=== PATIENT | male | born 1940 | race Asian ===

== ENCOUNTER 2018-08-30 16:11 | Inpatient (IN) | payer MEDICARE, BC ==
[~2018-08-30] VITALS: Ht 162.6 cm; Wt 56.7 kg
--- NOTE | 2018-08-30 07:00 | NUR ---
REPORT GIVEN TO ONCOMING NURSE, WALKING ROUNDS DONE, PATIENT IS RESTING IN BED. NO ACUTE DISTRESS NOTED. FAMILY AT BEDSIDE. CALL LIGHT WITHIN REACH. BED IN THE LOWEST POSITION.
[~2018-08-30 16:11] MED LIST: CRESTOR10 MG PO; METFORMIN HCL500 MG PO
[2018-08-30 17:07] LABS: BILIRUBIN,URINE NEGATIVE (NEGATIVE); CLARITY,URINE CLEAR (CLEAR); COLOR,URINE YELLOW (YELLOW); KETONES,URINE TRACE (NEGATIVE); LEUKOCYTE ESTERASE ,URINE NEGATIVE (NEGATIVE); NITRITE,URINE NEGATIVE (NEGATIVE); PROTEIN,URINE DIPSTICK NEGATIVE (NEGATIVE); URINE UROBILINOGEN 0.2 mg/dL (0.2 - 1)
[2018-08-30 17:11] LABS: BASOPHILS % 0.2 % (0.0-1.0); LYMPHOCYTES # (AUTO) 1.9 (1.0-3.2); LYMPHOCYTES % 17.7 % (18.0-39.1); MEAN CORPUSCULAR HGB CONC 32.3 g/dL (31-35); MEAN CORPUSCULAR VOLUME 83.5 fL (81-99); MONOCYTES # (AUTO) 1.2 (0.2-0.8); MONOCYTES % 10.6 % (4.4-11.3); NEUTROPHILS # (AUTO) 7.7 (2.1-6.9); NEUTROPHILS % 70.9 % (38.7-80.0); PLATELET COUNT 234 x10e3/uL (140-360); RED CELL DISTRIBUTION WIDTH 14.7 % (11.7-14.4)
[2018-08-30 17:12] LABS: HEMATOCRIT 16.7 % (38.2-49.6); HEMOGLOBIN 5.4 g/dL (14.0-18.0)
[2018-08-30 17:22] LABS: ALANINE AMINOTRANSFERASE 9 IU/L (0-55); ALBUMIN 3.2 g/dL (3.5-5.0); ALBUMIN/GLOBULIN RATIO 1.2 (0.8-2.0); ALKALINE PHOSPHATASE 45 IU/L (40-150); ANION GAP 16.6 mmol/L (8-16); BLOOD UREA NITROGEN 32 mg/dL (7-26); BUN/CREATININE RATIO 33 (6-25); CALCIUM 8.4 mg/dL (8.4-10.2); CARBON DIOXIDE 14 mmol/L (22-29); CHLORIDE 108 mmol/L (98-107); CREATINE KINASE 115 IU/L (30-200); CREATININE, SERUM 0.96 mg/dL (0.72-1.25); EST GLOMERULAR FILTRATION RATE > 60 ML/MIN (60-); GLUCOSE 242 mg/dL (74-118); POTASSIUM 3.6 mmol/L (3.5-5.1); SODIUM 135 mmol/L (136-145)
[2018-08-30 17:24] LABS: EPITHELIAL CELLS,URINE RARE /LPF
--- NOTE | 2018-08-30 17:48 | Diagnostic Imaging Report ---
EXAMINATION: CHEST SINGLE (PORTABLE) INDICATION: Chest pain, shortness of breath COMPARISON: None FINDINGS: TUBES and LINES: EKG leads overlie the thorax. LUNGS: The lung volumes are normal. No focal consolidation or pulmonary edema. PLEURA: No pleural effusion or pneumothorax. HEART AND MEDIASTINUM: The cardiomediastinal silhouette is normal in size and contour. BONES AND SOFT TISSUES: No acute fracture or dislocation. UPPER ABDOMEN: No free air under the diaphragm. IMPRESSION: No focal pneumonia or pulmonary edema. Signed by: Jerry Hernandez MD on 08/30/2018 5:44 PM
[2018-08-30] MEDS ORDERED: SODIUM CHLORIDE 0.9% 250ML 250 ML IV ONE (18:00)
--- OUTSIDE RECORDS SUMMARY | 2018-08-30 18:07 | XMS REPORT ---
Author Author [facility] Address Unknown Phone Unavailable Care Team Providers Care Scaler Name Role Phone Flora GOVEA Unavailable Unavailable Problems This patient has no known problems. Allergies, Adverse Reactions, Alerts This patient has no known allergies or adverse reactions. Medications This patient has no known medications. Results Test Description Test Time Test Comments Text Results Atomic Results Result Comments CHEST SINGLE (PORTABLE) 2018-08-30 17:42:00 [place] [address] Patient Name: PALMIRA ANGUIANO MR #: [id number] : 1940 Age/Sex: 78/M Req #: [id number] Adm Physician: Ordered by: ARELI GOVEA MD Report #: [id number] Location: ER Room/Bed: Procedure: [id number] DX/CHEST SINGLE (PORTABLE) Exam Date: 08/30/18 Exam Time: 1655 REPORT STATUS: Signed EXAMINATION: CHEST SINGLE (PORTABLE) I NDICATION: Chest pain, shortness of breath COMPARISON: None FINDINGS: TUBES and LINES: EKG leads overlie the thorax. LUNGS: The lung volumes are normal. No focal consolidation or pulmonary edema. PLEURA: No pleural effusion or pneumothorax. HEART AND MEDIASTINUM: The cardiomediastinal silhouette is normal in size and contour. BONES AND SOFT TISSUES: No acute fracture or dislocation. UPPER ABDOMEN: No free air under the diaphragm. IMPRESSION: No focal pneumonia or pulmonary edema. Signed by: Nakul Hernandez MD on 08/30/2018 5:44 PM Dictated By: NAKUL HERNANDEZ MD 43 Transcribed By: DEONDRE on 08/30/181743 COPY TO: ARELI GOVEA MD
[2018-08-30] MEDS ORDERED: DEXTROSE 50% SYRINGE 50 ML IV PRN (18:15)
--- NOTE | 2018-08-30 18:35 | NUR ---
RECEIVED PATIENT FROM ER TO ROOM 288, PATIENT IS IN STABLE CONDITION, NO ACUTE DISTRESS NOTED. FAMILY AT BEDSIDE. IV LINE TO LEFT FOREARM IS PATENT, FLUSHED WITH NS. PATIENT DENIES PAIN OR DISCOMFORT. PATIENT AND FAMILY ORIENTED TO ROOM AND POLICIES. CALL LIGHT WITHIN REACH. BED IN THE LOWEST POSITION.
[2018-08-30] MEDS ORDERED: PANTOPRAZOLE 40 MG 10ML VIAL IV SCH (18:45)
[2018-08-30 20:00] VITALS: BP 137/63
[2018-08-30] MEDS ORDERED: SODIUM CHLORIDE 0.9% 250ML 250 ML ONE (21:10)
[2018-08-30 22:01] VITALS: BP 137/63
[2018-08-30 22:07] VITALS: BP 137/63
[2018-08-31] VITALS (8 sets, daily range): BP systolic 110–141; BP diastolic 54–69
[2018-08-31] MEDS ORDERED: ONDANSETRON HCL INJ 2MG/ML 2ML 2 MG/ML VIAL IV PRN (06:00)
[2018-08-31] MEDS ORDERED: HYDRALAZINE HCL 20 MG/ML VIAL IV PRN (06:00)
[2018-08-31] MEDS ORDERED: ACETAMINOPHEN 325 MG TAB PO PRN (06:00)
[2018-08-31] MEDS ORDERED: PANTOPRAZOLE SOD 40 MG TABEC PO SCH (06:15)
--- NOTE | 2018-08-31 06:58 | NUR ---
RECEIVED PATIENT RESTING IN BED. RESPIRATIONS EVEN AND UNLABORED. NO ACUTE DISTRESS NOTED. CALL LIGHT WITHIN REACH. BED IN THE LOWEST POSITION.
[2018-08-31 07:51] LABS: HEMATOCRIT 21.3 % (38.2-49.6)
[2018-08-31 07:56] LABS: HEMOGLOBIN 6.8 g/dL (14.0-18.0)
--- NOTE | 2018-08-31 07:59 | NUR ---
LAB CALLED TO NOTIFY NURSE OF HGB OF 6.8. NOTIFIED MATTHEW, URINALYSIS TECHNICIAN AWAITING ON ORDERS.
[2018-08-31] MEDS: PANTOPRAZOLE SOD 40 MG TABEC PO SCH (08:15)
[2018-08-31] MEDS ORDERED: SODIUM CHLORIDE 0.9% 250ML 250 ML IV ONE (10:00)
--- NOTE | 2018-08-31 10:48 | NUR ---
STARTED 1 UNIT OF PRBC ORDERED AT THIS TIME. PATIENT IS IN STABLE CONDITION. VS WNL, WILL CONTINUE TO MONITOR.
--- NOTE | 2018-08-31 15:50 | NUR ---
Visit made by the Spiritual Care Department Pastoral Visitor, Doris Michelle. PV provided pastoral presence, prayer, hospitality, and supportive listening. Pastoral Visitor informed pt/family of the scope of [employer] and availability. CINTIA HILL [employer] Spiritual Care Department O: [phone] Pager: [phone] ([phone] number calling from)
[2018-08-31 16:57] LABS: HEMATOCRIT 28.6 % (38.2-49.6); HEMOGLOBIN 9.4 g/dL (14.0-18.0)
--- NOTE | 2018-08-31 18:57 | NUR ---
REPORT GIVEN TO ONCOMING NURSE, PATIENT IS WALKING IN ROOM. PATIENT DENIES WEAKNESS OF DIZZINESS. DENIES PAIN OR DISCOMFORT. NO ACUTE DISTRESS NOTED.
[2018-09-01] VITALS: BP 120/59
--- NOTE | 2018-09-01 02:35 | Consultation ---
DATE OF CONSULTATION: 08/31/2018 HISTORY OF PRESENT ILLNESS: This is a 78-year-old, who apparently had colonoscopy with polypectomy on August 24, apparently has some postpolypectomy bleeding for several days. He comes into the hospital and found that his hemoglobin was 5.4. He did receive blood transfusions and hemoglobin went up to 9.4. The bleeding appears to be better at this point. PAST MEDICAL PROBLEM: Significant for history of diabetes, status post colonoscopy with polypectomy. ALLERGIES: NONE. SOCIAL HISTORY: No alcohol use. FAMILY HISTORY: Noncontributory. REVIEW OF SYSTEMS: Denies any chest pain. At this point, he denies any shortness of breath. Denies any dysphagia or odynophagia. Denies any dysuria, hematuria, or any kind of syncopal episode. PHYSICAL EXAMINATION: GENERAL: The patient is awake, alert, appears to be stable, not in acute distress at this point. VITAL SIGNS: Afebrile currently with stable vital signs. HEAD, EYES, EARS, NOSE, AND THROAT: Normocephalic, atraumatic. Sclerae are anicteric. NECK: Supple. HEART: Regular. ABDOMEN: Soft. There is no distention at this point, it is nontender. EXTREMITIES: No cyanosis. No clubbing. LAB VALUES: His hemoglobin today is 9.4. BMP is okay. IMPRESSION: 1. Post polypectomy bleeding. At this point, the bleeding appeared to be stopped. The patient is currently asymptomatic. 2. History of diabetes. RECOMMENDATION: Continue current care at this point and check lab tomorrow. If hemoglobin is stable and the patient is not bleeding any more, he can call and follow up in the office. MD TA Harrell/MODL /[id number] cc: MD Dr. Gal Kent
[2018-09-01 04:00] VITALS: BP 132/70
[2018-09-01 04:09] LABS: BASOPHILS % 0.3 % (0.0-1.0); EOSINOPHILS # (AUTO) 0.1 (0.0-0.4); EOSINOPHILS % 1.4 % (0.0-6.0); HEMATOCRIT 24.7 % (38.2-49.6); HEMOGLOBIN 8.2 g/dL (14.0-18.0); LYMPHOCYTES % 24.8 % (18.0-39.1); MEAN CORPUSCULAR HGB CONC 33.2 g/dL (31-35); MEAN CORPUSCULAR VOLUME 84.3 fL (81-99); MONOCYTES # (AUTO) 0.8 (0.2-0.8); MONOCYTES % 9.7 % (4.4-11.3); NEUTROPHILS % 63.5 % (38.7-80.0); PLATELET COUNT 152 x10e3/uL (140-360); RED BLOOD COUNT 2.93 x10e6/uL (4.3-5.7); RED CELL DISTRIBUTION WIDTH 14.8 % (11.7-14.4)
[2018-09-01 04:26] LABS: ANION GAP 9.3 mmol/L (8-16); BLOOD UREA NITROGEN 22 mg/dL (7-26); BUN/CREATININE RATIO 29 (6-25); CALCIUM 7.9 mg/dL (8.4-10.2); CARBON DIOXIDE 21 mmol/L (22-29); CHLORIDE 112 mmol/L (98-107); CREATININE, SERUM 0.76 mg/dL (0.72-1.25); EST GLOMERULAR FILTRATION RATE > 60 ML/MIN (60-); GLUCOSE 140 mg/dL (74-118); MAGNESIUM 2.2 MG/DL (1.3-2.1); POTASSIUM 3.3 mmol/L (3.5-5.1); SODIUM 139 mmol/L (136-145)
[2018-09-01 04:37] LABS: B-TYPE NATRIURETIC PEPTIDE2 524.6 pg/mL (0-100)
[2018-09-01 04:48] LABS: FREE T4 (FREE THYROXINE) 1.01 ng/dL (0.8-1.8); THYROID STIMULATING HORMONE 0.003 uIU/mL (0.350-4.940)
[2018-09-01] MEDS ORDERED: POTASSIUM CHLORIDE 20 MEQ TAB CR PO STA (06:46)
[2018-09-01] MEDS ORDERED: PROTONIX40 MG/ML PO (06:54)
[2018-09-01] MEDS ORDERED: FERROUS SULFAT325 MG PO (06:54)
[2018-09-01] MEDS ORDERED: ASCORBIC ACID500 MG PO (06:54)
--- NOTE | 2018-09-01 07:30 | NUR ---
PT UP AMBULATING IN [place] ,DENIES PAIN,
[2018-09-01 07:45] VITALS: BP 127/76
[2018-09-01 07:53] VITALS: BP 127/76
[2018-09-01] MEDS: PANTOPRAZOLE SOD 40 MG TABEC PO SCH (08:45)
[2018-09-01] MEDS ORDERED: OYST-CAL-D 500MG TABLET PO SCH (09:00)
--- NOTE | 2018-09-01 11:29 | NUR ---
PT DISCHARGED HOME ,PRESCRIPTIONS AND INSTRUCTIONS GIVEN COPY ON CHAT,NO IV NOTED.
--- NOTE | 2018-09-02 03:18 | Discharge Summary ---
ADMISSION DIAGNOSES: Gastrointestinal bleed, type 2 diabetes, dehydration. DISCHARGE DIAGNOSES: Gastrointestinal bleed, type 2 diabetes, dehydration, acute blood loss anemia secondary to gastrointestinal bleed. MEDICAL HISTORY: Type 2 diabetes. SURGICAL HISTORY: None. FAMILY HISTORY: None. SOCIAL HISTORY: Occasional alcohol use. HOSPITAL COURSE: A 78-year-old male with history of colonoscopy on August 24, complains of black and bloody stools since the colonoscopy. He denies nausea, vomiting, diarrhea, and fever. He has had no change in appetite or abdominal pain. Since admission to the ER, he has not noticed any bleeding. He donates blood on a regular occasion and last donated blood about 3 weeks ago. On admission, the patient's hemoglobin was 5.4. Two PRBCs were ordered. Chest x-ray showed no pneumonia or edema. After 2 units of PRBCs, the hemoglobin went up to 6.8, and an additional unit was ordered and hemoglobin went up to 9.4, which has fallen to 8.2 by the next day. GI was consulted. They said since the hemoglobin is stable the patient can discharge and follow up for any additional studies outpatient. The patient did not have a bowel movement during hospitalization, but is ready to discharge home and will follow up outpatient with GI. The patient and understand discharge instructions and agrees to plan. Vital signs stable. The patient afebrile. Dictated by Rosalva Rosales NP MD MARAH Kent/ERIC /[id number]
== END 2018-09-01 11:19 | disposition home or self-care (01) | DRG 920 ==
LOC: ER 16:11 → ERHOLD 17:52 → MED/SURG3 18:30
PROVIDERS: ADMIT Internal Medicine; ATTEND Internal Medicine
PROC: 30233N1 Transfusion of Nonautologous Red Blood Cells into Peripheral Vein, Percutaneous Approach (ICD-10-PCS; principal; 2018-08-31)
DX: K91.840 Postprocedural hemorrhage of a digestive system organ or structure following a digestive system procedure (principal); K92.2 Gastrointestinal hemorrhage, unspecified; D62 Acute posthemorrhagic anemia; E86.0 Dehydration; E11.9 Type 2 diabetes mellitus without complications
CPT/HCPCS: 36415; 71045; 80048; 80053; 81001; 82550; 82553; 82948; 83036; 83735; 83880; 84439; 84443; 84484; 85014; 85018; 85025; 86850; 86900; 86920; 93005; 99284; J7050; P9016

== ENCOUNTER 2019-08-05 02:18 | Emergency (ER) | payer OTHER, BC ==
[~2019-08-05] VITALS: Ht 162.6 cm; Wt 56.7 kg
[~2019-08-05 02:18] MED LIST changes: +ASCORBIC ACID500 MG PO; +FERROUS SULFAT325 MG PO; +PROTONIX40 MG/ML PO
--- OUTSIDE RECORDS SUMMARY | 2019-08-05 02:21 | XMS REPORT | Continuity of Care Document ---
Author Author [facility] t Organization [facility] Address [address] [place] [address] Phone Unavailable Care Team Providers Care Construction Scheduler Name Role Phone ESCOBAR YOUSSEF MD PCP Gloria GOVEA Attphygloria Unavailable Payers Payer Name Policy Type Policy Number Effective Date Expiration Date Gloria Barahona Plus [facility] [id number] 2018 00:00:00 [facility] [employer] [id number] 2015 00:00:[address] [facility] Problems Condition Name Condition Details Condition Category Status Onset Date Resolution Date Last Treatment Date Treating Clinician Comments Source Lower gastrointestinal hemorrhage LGI bleed Problem Active [facility] Allergies, Adverse Reactions, Alerts This patient has no known allergies or adverse reactions. Medications Ordered Medication Name Filled Medication Name Start Date Stop Da te Current Medication? Ordering Clinician Indication Dosage Frequency Signature (SIG) Comments Components Source Ascorbic Acid 500 Mg Tablet Ascorbic Acid 500 Mg Tablet 2018-09-01 00:00:00 Yes Rosalva M Dexter Unix Engineer 500 Daily [facility] Ferrous Sulfate 325 Mg Tablet Ferrous Sulfate 325 Mg Tablet 2018 00:00:00 Yes Rosalva M Bobby [employer] [address] [facility] Pantoprazole Sod (Protonix) 40 Mg/Ml Susp Pantoprazole Sod (Protonix) 40 Mg/Ml Susp 2018-09-01 00:00:00 Yes Rosalva Keyona OwusuBobby [employer] Engineer [address] [facility] Metformin Hcl 500 Mg Tablet, 500 Mg Oral Metformin Hcl 500 Mg Tablet, 500 Mg Oral 2018-08-30 00:00:[address] [facility] Rosuvastatin Calcium (Crestor) 10 Mg Tab, 10 Mg Oral R osuvastatin Calcium (Crestor) 10 Mg Tab, 10 Mg Oral 2018-08-30 00:00:[address] [facility] Procedures This patient has no known procedures. Encounters Start Date/Time End Date/Time Encounter Type Admission Type Attendi [facility] Care Department Encounter ID Source 2018-08-30 17:52:00 2018-09-01 11:19:00 Discharged Inpatient 1 ARELI GOVEA [facility] [id number] [facility] Results Test Description Test Time Test Comments Results Result Comments Source Bedside Glucose 2018-09-01 07:55:00 Test Item Bedside Glucose (test code = 45406-0) 153 70-120 H Meter ID: [id number]. [facility]'s [facility] HospitalB-Type Natriuretic Vzicrhd9119-73-29 05:21:00* Test Item Value Reference Range Interpretation Comments B-Type Natriuretic Peptide (test code = 23130-0) 524.6 0-[address] [facility] HospitalFree Kubmrhzvb7820-18-19 05:20:00* Test Item Value Reference Range Interpretation Comments Free Thyroxine (test code = 3024-7) 1.01 0.8-1.8 [facility] HospitalThyroid Stimulating Hormone (TSH) 2018-09-01 05:20:00* Test Item Value Reference Range Interpretation Comments Thyroid Stimulating Hormone (TSH) (test code = 87467-6) 0.003 0.350-4.[address] [facility] Xnqza9879-83-89 04:31:00* Test Item Value Reference Range Interpretation Comments Sodium Level (test code = 2951-2) 139 136-145 [facility] HospitalPotassium Mbiyi8889-63-38 04:31:00* Test Item Value Reference Range Interpretation Comments Potassium Level (test code = 2823-3) 3.3 3.5-5.[address] [facility] HospitalChloride Lzpcu1393-77-52 04:31:00* Test Item Value Reference Range Interpretation Comments Chloride Level (test code = 2075-0) 112 98-[address] [facility] HospitalCarbon Dioxide Biydd7101-25-76 04:31:00* Test Item Value Reference Range Interpretation Comments Carbon Dioxide Level (test code = 2028-9) 21 22-[address] [facility] HospitalAnion Aqm5891-97-75 04:31:00* Test Item Value Reference Range Interpretation Comments Anion Gap (test code = 32662-1) 9.3 8-16 [facility] HospitalBlood Urea Fwfdcjdf5310-91-07 04:31:00* Test Item Value Reference Range Interpretation Comments Blood Urea Nitrogen (test code = 3094-0) 22 7-26 [facility] HospitalCreatinine2019-07-10 04:31:00* Test Item Value Reference Range Interpretation Comments Creatinine (test code = 2160-0) 0.76 0.72-1.25 [facility] HospitalBUN/Creatinine Sxtms4503-49-06 04:31:00* Test Item Value Reference Range Interpretation Comments BUN/Creatinine Ratio (test code = 3097-3) 29 6-[address] [facility] HospitalEstimat Glomerular Filtration Rate 2018-09-01 04:31:00* Test Item Value Reference Range Interpretation Comments Estimat Glomerular Filtration Rate (test code = 192755727) > 60 >60 Ranges were taken from the National Kidney Disease Education Program and the [facility] literature.Reference ranges:60 or greater: Yizoeq00-72 ( for 3 consecutive months): Chronic kidney disease 15 or less: Kidney failureSt. David's Georgetown HospitalGlucose Hsesa6335-19-73 04:31:00* Test Item Value Reference Range Interpretation Comments Glucose Level (test code = CCE8784) 140 74-[address] [facility] HospitalCalcium Rlzob7212-88-51 04:31:00* Test Item Value Reference Range Interpretation Comments Calcium Level (test code = 10680-0) 7.9 8.4-10.[address] [facility] HospitalHemoglobin A1c Exlwpmz9206-38-61 04:31:00 * Test Item Value Reference Range Interpretation Comments Hemoglobin A1c Percent (test code = Hemoglobin A1c Percent) 6.5 4.0-7.0 [facility] HospitalMagnesium Lkriz9346-64-15 04:31:00* Test Item Value Reference Range Interpretation Comments Magnesium Level (test code = 31894-9) 2.2 1.3-2.[address] [facility] HospitalWhite Blood Hvxiq3111-61-23 04:19:00* Test Item Value Reference Range Interpretation Comments White Blood Count (test code = 6690-2) 7.86 4.8-10.8 [facility] HospitalRed Blood Xdcbn6830-64-00 04:19:00* Test Item Value Reference Range Interpretation Comments Red Blood Count (test code = 789-8) 2.93 4.3-5.[address] [facility] HospitalHemoglobin2019-07-10 04:19:00* Test Item Value Reference Range Interpretation Comments Hemoglobin (test code = 17107-1) 8.2 14.0-18.[address] [facility] HospitalHematocrit2019-07-10 04:19:00* Test Item Value Reference Range Interpretation Comments Hematocrit (test code = 4544-3) 24.7 38.2-49.[address] [facility] HospitalMean Corpuscular Dddusy6487-55-25 04:19:00* Test Item Value Reference Range Interpretation Comments Mean Corpuscular Volume (test code = 787-2) 84.3 81-99 [facility] HospitalMean Corpuscular Yxzvesavzv9797-12-95 04:19:00* Test Item Value Reference Range Interpretation Comments Mean Corpuscular Hemoglobin (test code = 785-6) 28.0 28-32 [facility] HospitalMean Corpuscular Hemoglobin Concent 2018-09-01 04:19:00* Test Item Value Reference Range Interpretation Comments Mean Corpuscular Hemoglobin Concent (test code = 786-4) 33.2 31-35 [facility] HospitalRed Cell Distribution Pyscd4188-92-02 04:19:00* Test Item Value Reference Range Interpretation Comments Red Cell Distribution Width (test code = 57499-9) 14.8 11.7 -14.[address] [facility] HospitalPlatelet Uopqx1205-52-23 04:19:00* Test Item Value Reference Range Interpretation Comments Platelet Count (test code = 777-3) 152 140-360 [facility] HospitalNeutrophils (%) (Auto)2018-09-01 04:19:00 * Test Item Value Reference Range Interpretation Comments Neutrophils (%) (Auto) (test code = 81468-9) 63.5 38.7-80.0 [facility] HospitalLymphocytes (%) (Auto)2018-09-01 04:19:00 * Test Item Value Reference Range Interpretation Comments Lymphocytes (%) (Auto) (test code = 736-9) 24.8 18.0-39.1 [facility] HospitalMonocytes (%) (Auto)2018-09-01 04:19:00* Test Item Value Reference Range Interpretation Comments Monocytes (%) (Auto) (test code = 5905-5) 9.7 4.4-11.3 [facility] HospitalEosinophils (%) (Auto)2018-09-01 04:19:00 * Test Item Value Reference Range Interpretation Comments Eosinophils (%) (Auto) (test code = 713-8) 1.4 0.0-6.0 [facility] HospitalBasophils (%) (Auto)2018-09-01 04:19:00* Test Item Value Reference Range Interpretation Comments Basophils (%) (Auto) (test code = 706-2) 0.3 0.0-1.0 [facility] HospitalIM GRANULOCYTES %2018-09-01 04:19:00* Test Item Value Reference Range Interpretation Comments IM GRANULOCYTES % (test code = IM GRANULOCYTES %) 0.3 0.0- 1.0 [facility] HospitalNeutrophils # (Auto)2018-09-01 04:19:00* Test Item Value Reference Range Interpretation Comments Neutrophils # (Auto) (test code = 751-8) 5.0 2.1-6.9 [facility] HospitalLymphocytes # (Auto)2018-09-01 04:19:00* Test Item Value Reference Range Interpretation Comments Lymphocytes # (Auto) (test code = 37955-9) 2.0 1.0-3.2 [facility] HospitalMonocytes # (Auto)2018-09-01 04:19:00* Test Item Value Reference Range Interpretation Comments Monocytes # (Auto) (test code = 742-7) 0.8 0.2-0.8 [facility] HospitalEosinophils # (Auto)2018-09-01 04:19:00* Test Item Value Reference Range Interpretation Comments Eosinophils # (Auto) (test code = 711-2) 0.1 0.0-0.4 [facility] HospitalBasophils # (Auto)2018-09-01 04:19:00* Test Item Value Reference Range Interpretation Comments Basophils # (Auto) (test code = 704-7) 0.0 0.0-0.1 [facility] HospitalAbsolute Immature Granulocyte (auto 2018-09-01 04:19:00* Test Item Value Reference Range Interpretation Comments Absolute Immature Granulocyte (auto (roxanna t code = Absolute Immature Granulocyte (auto) 0.02 0-0.1 [facility] HospitalCHEST SINGLE (PORTABLE)2018-08-30 17:42:00 [place] [address] Patient Name: PALMIRA ANGUIANO MR #: [id number] : 1940 Age/Sex: 78/M Req #: [id number] Adm Physician: Ordered by: ARELI GOVEA MD Report #: [id number] Location: ER Room/Bed: Procedure: [id number] DX/CHEST SINGLE (PORTABLE) Exam Date: 08/30/18 Exam Time: 6005 REPORT STATUS: Signed EXAMINATION: CHEST SINGLE (PORTABLE) INDICATION: Chest pain, shortness of breath COMPARISON: None FINDINGS: TUBES and LINES: EKG leads overlie the thorax. LUNGS: The lung volumes are normal. No focal conso lidation or pulmonary edema. PLEURA: No pleural effusion or pneumothorax. HEART AND MEDIASTINUM: The cardiomediastinal silhouette is normal in size and contour. BONES AND SOFT TISSUES: No acute fracture or dislocation. UPPER ABDOMEN: No free air under the diaphragm. IMPRESSION: No focal pneumonia or pulmonary edema. Signed by: Nakul Barreto MD on 08/30/2018 5:44 PM Dictated By: NAKUL BARRETO MD 43 COPY TO: Trini GOVEA MD Creatine Kinase RC3714-19-29 17:31:00* Test Item Value Reference Range Interpretation Comments Creatine Kinase MB (test code = 69404-4) 0.80 0-5.0 [facility] HospitalTroponin [id number] 17:31:00* Test Item Value Reference Range Interpretation Comments Troponin I (test code = SDO7128) < 0.001 0-0.300 [facility] HospitalUrine MIJ4007-15-24 17:24:00* Test Item Value Reference Range Interpretation Comments Urine WBC (test code = 5821-4) NONE 0-5 [facility] HospitalUrine YBQ7097-12-48 17:24:00* Test Item Value Reference Range Interpretation Comments Urine RBC (test code = 26597-5) NONE 0-5 [facility] HospitalUrine Smnbkmzn6789-53-84 17:24:00* Test Item Value Reference Range Interpretation Comments Urine Bacteria (test code = 72329-7) NONE NONE [facility] HospitalUrine Epithelial Hdgcd6025-10-00 17:24:00 * Test Item Value Reference Range Interpretation Comments Urine Epithelial Cells (test code = 30952-0) RARE NONE [facility] HospitalTotal Xsckwlmas2234-66-14 17:23:00* Test Item Value Reference Range Interpretation Comments Total Bilirubin (test code = 1975-2) 0.5 0.2-1.2 [facility] HospitalAspartate Amino Transf (AST/SGOT) 2018-08-30 17:23:00* Test Item Value Reference Range Interpretation Comments Aspartate Amino Transf (AST/SGOT) (test code = Aspartate Amino Transf (AST/SGOT)) 13 5-34 [facility] HospitalAlanine Aminotransferase (ALT/SGPT) 2018-08-30 17:23:00* Test Item Value Reference Range Interpretation Comments Alanine Aminotransferase (ALT/SGPT) (test code = 1742-6) 9 0-55 [facility] HospitalTotal Libdmim2932-83-08 17:23:00* Test Item Value Reference Range Interpretation Comments Total Protein (test code = 2885-2) 5.9 6.5-8.[address] [facility] HospitalAlbumin2019 17:23:00* Test Item Value Reference Range Interpretation Comments Albumin (test code = 1751-7) 3.2 3.5-5.[address] [facility] HospitalGlobulin2019 17:23:00* Test Item Value Reference Range Interpretation Comments Globulin (test code = 68107-7) 2.7 2.3-3.5 [facility] HospitalAlbumin/Globulin Gkwbc1854-47-04 17:23:00 * Test Item Value Reference Range Interpretation Comments Albumin/Globulin Ratio (test code = 1759-0) 1.2 0.8-2.0 [facility] HospitalAlkaline Hzruptvnuqd5945-32-91 17:23:00* Test Item Value Reference Range Interpretation Comments Alkaline Phosphatase (test code = 6768-6) 45 40-150 [facility] HospitalCreatine Zxbuwy2740-66-57 17:23:00* Test Item Value Reference Range Interpretation Comments Creatine Kinase (test code = 2157-6) 115 30-200 [facility] HospitalUrine Vgxla3564-75-86 17:10:00* Test Item Value Reference Range Interpretation Comments Urine Color (test code = 5778-6) YELLOW YELLOW [facility] HospitalUrine Kvhdcgu1230-07-25 17:10:00* Test Item Value Reference Range Interpretation Comments Urine Clarity (test code = 19268-1) CLEAR CLEAR [facility] HospitalUrine Specific Cnjaynt6907-80-52 17:10:00 * Test Item Value Reference Range Interpretation Comments Urine Specific [place] (test code = 5811-5) 1.015 1.010-1.[address] [facility] HospitalUrine [id number] 17:10:00* Test Item Value Reference Range Interpretation Comments Urine pH (test code = 19290-4) 5.5 5-7 [facility] HospitalU[facility] Leukocyte Eeitazvm2486-10-84 17:10:00* Test Item Value Reference Range Interpretation Comments Urine Leukocyte Esterase (test code = 27627-2) NEGATIVE NEGATIV E [facility] Ngepnsn3192-24-57 17:10:00* Test Item Value Reference Range Interpretation Comments Urine Nitrite (test code = 60424-7) NEGATIVE NEGATIVE [facility] Joxgrfr1578-92-92 17:10:00* Test Item Value Reference Range Interpretation Comments Urine Protein (test code = 67316-2) NEGATIVE NEGATIVE [facility] Glucose (UA)2018-08-30 17:10:00* Test Item Value Reference Range Interpretation Comments Urine Glucose (UA) (test code = 22659-1) 3+ NEGATIVE [facility] HospitalUrine Orzhfbz0963-53-34 17:10:00* Test Item Value Reference Range Interpretation Comments Urine Ketones (test code = 75878-6) TRACE NEGATIVE H [facility] Qarzuzaxzaup6354-68-13 17:10:00* Test Item Value Reference Range Interpretation Comments Urine Urobilinogen (test code = 53759-0) 0.2 0.2-1 [facility] HospitalUrine Qaqikwmsg5134-10-06 17:10:00* Test Item Value Reference Range Interpretation Comments Urine Bilirubin (test code = 1977-8) NEGATIVE NEGATIVE [facility] Kdqpv1158-22-26 17:10:00* Test Item Value Reference Range Interpretation Comments Urine Blood (test code = 99898-6) NEGATIVE NEGATIVE [facility]
[2019-08-05] MEDS ORDERED: PANTOPRAZOLE 40 MG 10ML VIAL IV STA (02:32)
--- NOTE | 2019-08-05 02:44 | Emergency Department Note ---
History of Present Illnes History of Present Illness Chief Complaint: Abdominal Complaints History of Present Illness This is a 79 year old male presents with complaint of abdominal pain for over 12 hours. Was seen in an urgent care yesterday for same. Was prescribed Reglan. Patient denies nausea vomiting diarrhea. States the reason he came in is because he still has the pain. Describes the pain as his entire abdomen crampy like and constant. . Historian: Patient Arrival Mode: Car Onset (how long ago): hour(s) (12) Location: abdomen Quality: pain Radiation: Reports non-radiation Severity: moderate Onset quality: gradual Duration (how long): hour(s) (12) Progression: unchanged Chronicity: new Context: Denies recent illness, Denies recent surgery Relieving factors: none Exacerbating factors: none Associated symptoms: Reports denies other symptoms Treatments prior to arrival: other (reglan without relief) Past Medical/Family History Physician Review I have reviewed the patient's past medical and family history. Any updates have been documented here. Past Medical History Recent Fever: No Clinical Suspicion of Infectio: No New/Unexplained Change in Ment: No Past Medical History: Diabetes, Hyperlipedemia Other Medical History: colonoscopy Past Surgical History: None Family History Family history of heart diseas: No Other family history dm Other Last Tetanus: OOD Review of Systems Review of Systems Constitutional: Reports no symptoms EENTM: Reports no symptoms Cardiovascular: Reports no symptoms Respiratory: Reports no symptoms Gastrointestinal: Reports as per HPI Genitourinary: Reports no symptoms Musculoskeletal: Reports no symptoms Integumentary: Reports no symptoms Neurological: Reports no symptoms Psychological: Reports no symptoms Endocrine: Reports no symptoms Hematological/Lymphatic: Reports no symptoms Physical Exam Related Data Allergies: Coded Allergies: No Known Allergies (Unverified , 08/30/18) Triage Vital Signs Vital Signs Date Time Temp Pulse Resp B/P (MAP) Pulse Ox O2 Delivery O2 Flow Rate FiO2 08/05/19 02:26 97.9 87 18 171/80 96 Vital signs reviewed: Yes Physical Exam CONSTITUTIONAL Constitutional: Reports well-developed, Reports well-nourished, Reports other (no apparanet distress) HENT HENT: Reports normocephalic, Reports atraumatic, Reports oropharynx clear/moist, Reports nose normal HENT L/R: Reports left ext ear normal, Reports right ext ear normal EYES Eyes: Reports PERRL, Reports conjunctivae normal NECK Neck: Reports ROM normal PULMONARY Pulmonary: Reports effort normal, Reports breath sounds normal CARDIOVASCULAR Cardiovascular: Reports regular rhythm, Reports irregular rhythm (skipping occasional beats), Reports heart sounds normal, Reports capillary refill normal, Reports normal rate GASTROINTESTINAL Abdominal: Reports soft, Reports bowel sounds normal, Reports tender (mild generalized tenderness) GENITOURINARY Genitourinary: Reports exam deferred SKIN Skin: Reports warm, Reports dry MUSCULOSKELETAL Musculoskeletal: Reports ROM normal NEUROLOGICAL Neurological: Reports alert, Reports oriented x 3, Reports no gross motor or sensory deficits PSYCHOLOGICAL Psychological: Reports mood/affect normal, Reports judgement normal Results Laboratory Laboratory Laboratory Tests Test 08/05/19 03:14 08/05/19 02:40 Urine Color Yellow (YELLOW) Urine Clarity Clear (CLEAR) Urine pH 6 (5 - 7) Urine Specific [place] 1.025 (1.010-1.025) Urine Protein Negative (NEGATIVE) Urine Glucose (UA) 1+ (NEGATIVE) Urine Ketones 1+ (NEGATIVE) Urine Blood Small (NEGATIVE) Urine Nitrite Negative (NEGATIVE) Urine Bilirubin Negative (NEGATIVE) Urine Urobilinogen 0.2 mg/dL (0.2 - 1) Urine Leukocyte Esterase Negative (NEGATIVE) Urine RBC 6-10 /HPF (0-5) Urine WBC 6-10 /HPF (0-5) Urine Epithelial Cells Few /LPF (NONE) Urine Bacteria Rare /HPF (NONE) White Blood Count 7.97 x10e3/uL (4.8-10.8) Red Blood Count 5.55 x10e6/uL (4.3-5.7) Hemoglobin 15.4 g/dL (14.0-18.0) Hematocrit 45.1 % (38.2-49.6) Mean Corpuscular Volume 81.3 fL (81-99) Mean Corpuscular Hemoglobin 27.7 pg (28-32) Mean Corpuscular Hemoglobin Concent 34.1 g/dL (31-35) Red Cell Distribution Width 13.3 % (11.7-14.4) Platelet Count 234 x10e3/uL (140-360) Neutrophils (%) (Auto) 71.2 % (38.7-80.0) Lymphocytes (%) (Auto) 18.3 % (18.0-39.1) Monocytes (%) (Auto) 8.4 % (4.4-11.3) Eosinophils (%) (Auto) 1.4 % (0.0-6.0) Basophils (%) (Auto) 0.3 % (0.0-1.0) Neutrophils # (Auto) 5.7 (2.1-6.9) Lymphocytes # (Auto) 1.5 (1.0-3.2) Monocytes # (Auto) 0.7 (0.2-0.8) Eosinophils # (Auto) 0.1 (0.0-0.4) Basophils # (Auto) 0.0 (0.0-0.1) Absolute Immature Granulocyte (auto 0.03 x10e3/uL (0-0.1) Sodium Level 138 mmol/L (136-145) Potassium Level 3.3 mmol/L (3.5-5.1) Chloride Level 106 mmol/L (98-107) Carbon Dioxide Level 19 mmol/L (22-29) Anion Gap 16.3 mmol/L (8-16) Blood Urea Nitrogen 10 mg/dL (7-26) Creatinine 0.96 mg/dL (0.72-1.25) Estimat Glomerular Filtration Rate > 60 ML/MIN (60-) BUN/Creatinine Ratio 10 (6-25) Glucose Level 137 mg/dL (74-118) Calcium Level 8.8 mg/dL (8.4-10.2) Total Bilirubin 1.1 mg/dL (0.2-1.2) Aspartate Amino Transf (AST/SGOT) 20 IU/L (5-34) Alanine Aminotransferase (ALT/SGPT) 14 IU/L (0-55) Alkaline Phosphatase 91 IU/L (40-150) Creatine Kinase 91 IU/L (30-200) Creatine Kinase MB 2.00 ng/mL (0-5.0) Troponin I 0.014 ng/mL (0-0.300) Total Protein 7.5 g/dL (6.5-8.1) Albumin 4.0 g/dL (3.5-5.0) Globulin 3.5 g/dL (2.3-3.5) Albumin/Globulin Ratio 1.1 (0.8-2.0) Amylase Level 85 U/L (25-125) Lipase 17 U/L (8-78) Lab results reviewed: Yes Imaging Imaging results reviewed: Yes Impressions ct abd/pelvis IMPRESSION: 1. Significant dilatation of large bowel with air and stool with transition point at sigmoid colon, representing at least partial bowel obstruction versus colonic ileus. 2. Rectal wall thickening, could be due to infectious/inflammatory process such as proctitis. Underlying rectal lesion cannot be excluded and correlation with endoscopy is recommended.. 3. 20 cm right renal cysts. Procedures 12 Lead ECG Interpretation ECG Interpretation : ECG: ECG 1 Pump Station Operator: Interpreted by ED physician Date: Aug 05, 2019 Time: 02:32 Prior ECG tracings: reviewed (from 08/2018, pvc's present at that time) Rhythm: sinus rhythm Ectopy: frequent PVC's Rate: normal BPM: 85 QRS axis: normal ST segments normal: No (nonspecific changes) Other findings: no other findings Clinical Impression: abnormal ECG Assessment & Plan Medical Decision Making MDM Patient presents with generalized abdominal pain for over 12 hours. Went to an urgent care and was seen in [facility]. States pain has not gotten any better. Denies chest pain shortness of breath nausea vomiting and diarrhea. Patient with PVCs on EKG, reviewed old EKG which revealed PVCs as well back in August 2018. CBC, CMP, amylase, lipase, CT abdomen and pelvis, EKG, cardiac enzymes, UA ordered to eval for pancreatitis, myocardial infarction, elevated LFTs, gallstones, colitis, appendicitis, diverticulitis pt has findings of bowel obstruction on ct abd, this facility is at capacity and has no beds available for admission, thus will require transfer for further treatment. I SPOKE WITH DR MARTI SURGEON AT [facility], STATES PT NEEDS TO BE ACCEPTED BY HOSPITALIST WITH HER A ANESTHESIOLOGIST. I SPOKE WITH DR SCHWAB HOSPITALIST AT [facility] AND HE ACCEPTS. Assessment & Plan Final Impression: (1) Bowel obstruction Last Vital Signs Date Time Temp Pulse Resp B/P (MAP) Pulse Ox O2 Delivery O2 Flow Rate FiO2 08/05/19 02:26 97.9 87 18 171/80 96 Home Meds Active Scripts Ascorbic Acid (ASCORBIC ACID) 500 Mg Tablet, 500 MG PO DAILY, #30 TAB Prov:MATTHEW ZUNIGA METAL SHAPING MACHINE OPERATOR 09/01/18 Ferrous Sulfate (FERROUS SULFATE) 325 Mg Tablet, 325 MG PO DAILY, #30 Prov:MATTHEW ZUNIGA METAL SHAPING MACHINE OPERATOR 09/01/18 Pantoprazole Sod (PROTONIX) 40 Mg/Ml Susp, 40 MG PO ACB for 30 Days Prov:MATTHEW ZUNIGA METAL SHAPING MACHINE OPERATOR 09/01/18 Medications in the ED Pantoprazole Sodium 40 mg NOW STAT IV ; Start 08/05/19 at 02:32; Stop 08/05/19 at 02:33; Status UNV ANUM DICKSON MD Aug 05, 2019 02:44
[2019-08-05 02:58] LABS: BASOPHILS % 0.3 % (0.0-1.0); EOSINOPHILS # (AUTO) 0.1 (0.0-0.4); EOSINOPHILS % 1.4 % (0.0-6.0); HEMATOCRIT 45.1 % (38.2-49.6); HEMOGLOBIN 15.4 g/dL (14.0-18.0); LYMPHOCYTES # (AUTO) 1.5 (1.0-3.2); LYMPHOCYTES % 18.3 % (18.0-39.1); MEAN CORPUSCULAR HEMOGLOBIN 27.7 pg (28-32); MEAN CORPUSCULAR HGB CONC 34.1 g/dL (31-35); MEAN CORPUSCULAR VOLUME 81.3 fL (81-99); MONOCYTES # (AUTO) 0.7 (0.2-0.8); MONOCYTES % 8.4 % (4.4-11.3); NEUTROPHILS # (AUTO) 5.7 (2.1-6.9); NEUTROPHILS % 71.2 % (38.7-80.0); PLATELET COUNT 234 x10e3/uL (140-360); RED BLOOD COUNT 5.55 x10e6/uL (4.3-5.7); RED CELL DISTRIBUTION WIDTH 13.3 % (11.7-14.4)
[2019-08-05 03:11] LABS: ALANINE AMINOTRANSFERASE 14 IU/L (0-55); ALBUMIN/GLOBULIN RATIO 1.1 (0.8-2.0); ALKALINE PHOSPHATASE 91 IU/L (40-150); ANION GAP 16.3 mmol/L (8-16); BLOOD UREA NITROGEN 10 mg/dL (7-26); BUN/CREATININE RATIO 10 (6-25); CALCIUM 8.8 mg/dL (8.4-10.2); CARBON DIOXIDE 19 mmol/L (22-29); CHLORIDE 106 mmol/L (98-107); CREATINE KINASE 91 IU/L (30-200); CREATININE, SERUM 0.96 mg/dL (0.72-1.25); EST GLOMERULAR FILTRATION RATE > 60 ML/MIN (60-); GLUCOSE 137 mg/dL (74-118); POTASSIUM 3.3 mmol/L (3.5-5.1); SODIUM 138 mmol/L (136-145)
[2019-08-05 03:26] LABS: CLARITY,URINE CLEAR (CLEAR); COLOR,URINE YELLOW (YELLOW)
[2019-08-05 03:27] LABS: BILIRUBIN,URINE NEGATIVE (NEGATIVE); KETONES,URINE 1+ (NEGATIVE); LEUKOCYTE ESTERASE ,URINE NEGATIVE (NEGATIVE); NITRITE,URINE NEGATIVE (NEGATIVE); PROTEIN,URINE DIPSTICK NEGATIVE (NEGATIVE); URINE UROBILINOGEN 0.2 mg/dL (0.2 - 1)
[2019-08-05 03:34] LABS: AMYLASE 85 U/L (25-125); LIPASE 17 U/L (8-78)
[2019-08-05 03:35] LABS: BACTERIA,URINE RARE /HPF; EPITHELIAL CELLS,URINE FEW /LPF
[2019-08-05] MEDS ORDERED: IOPAMIDOL 370 MG/ML 200 ML INFUS..BTL INJ ONE (03:49)
[2019-08-05] MEDS ORDERED: SODIUM CHLORIDE 0.9% 50ML 50 ML ONE (03:49)
--- NOTE | 2019-08-05 05:28 | Diagnostic Imaging Report ---
EXAM: CT Abdomen and Pelvis WITH contrast INDICATION: ^abd pain ^[id number] ^0350 ^Y COMPARISON: None. TECHNIQUE: Abdomen and pelvis were scanned utilizing a multidetector helical scanner from the lung base to the pubic symphysis after administration of IV contrast. Coronal and sagittal reformations were obtained. Dose modulation, iterative reconstruction, and/or weight based adjustment of the mA/kV was utilized to reduce the radiation dose to as low as reasonably achievable. Routine protocol was performed. Scan was performed when during portal venous phase. IV CONTRAST: 100 mL of Isovue-370 ORAL CONTRAST: None COMPLICATIONS: None RADIATION DOSE: Total DLP: 164.08 mGy*cm Estimated effective dose: (DLP x 0.015 x size factor) mSv CTDIvol has been reviewed. It is below the limits set by the Radiation Protocol Committee (RPC). FINDINGS: LINES and TUBES: None. LOWER THORAX: Unremarkable HEPATOBILIARY: Contracted. No focal hepatic lesions. No biliary ductal dilation. GALLBLADDER: No radio-opaque stones or sludge. No wall thickening. SPLEEN: No splenomegaly. PANCREAS: No focal masses or ductal dilatation. ADRENALS: No adrenal nodules KIDNEYS/URETERS: Kidneys enhance symmetrically. No hydronephrosis. Partially atrophic left mid to superior pole cyst measures 11.2 x 11.5 x 20 cm. There is also very 1 cm right inferior pole cyst. No stones. GI TRACT: Significant dilatation of colon with air and stool with transition point at sigmoid colon (series 2, image 46). Small bowel loops are mostly collapsed. Rectal wall thickening. Appendix is normal. PELVIC ORGANS/BLADDER: Prominent prostate. Bladder is unremarkable. LYMPH NODES: No lymphadenopathy. VESSELS: There is moderate atherosclerotic disease in the aorta and major arterial branches. PERITONEUM / RETROPERITONEUM: No free air. Trace dependent ascites. 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 Degenerative changes of spine. SOFT TISSUES: Unremarkable. IMPRESSION: 1. Significant dilatation of large bowel with air and stool with transition point at sigmoid colon, representing at least partial bowel obstruction versus colonic ileus. 2. Rectal wall thickening, could be due to infectious/inflammatory process such as proctitis. Underlying rectal lesion cannot be excluded and correlation with endoscopy is recommended.. 3. 20 cm right renal cysts. Signed by: Dr. Jon Rivero MD on 08/05/2019 5:25 AM
[2019-08-05] MEDS ORDERED: PANTOPRAZOLE 40 MG 10ML VIAL ONE (06:51)
--- NOTE | 2019-08-05 07:56 | NUR ---
attempted to call report to [facility] in the medical center unable to get in contact with receiving nurse was told by transport center that they would get someone to call back to receive report.
[2019-08-05 08:15] VITALS: BP 143/83
[2019-08-05] MEDS ORDERED: ONDANSETRON HCL INJ 2MG/ML 2ML 2 MG/ML VIAL IV STA (08:17)
[2019-08-05] MEDS ORDERED: MORPHINE SULFATE INJ 4 MG/ML INJ 1ML ONE (08:26)
[2019-08-05] MEDS ORDERED: MORPHINE SULFATE INJ 4 MG/ML INJ 1ML IV STA (08:32)
== END 2019-08-05 08:35 | disposition other institution (70) ==
LOC: ER 02:18
DX: R10.84 Generalized abdominal pain (principal); K56.609 Unspecified intestinal obstruction, unspecified as to partial versus complete obstruction; E11.9 Type 2 diabetes mellitus without complications; E78.5 Hyperlipidemia, unspecified
CPT/HCPCS: 36415; 74177; 80053; 81001; 82150; 82550; 82553; 83690; 84484; 85025; 93005; 96374; 99284; C9113; J2270; J2405; Q9967